=== PATIENT | male | born 1960 | race Caucasian/White ===

== ENCOUNTER 2018-02-17 11:18 | Emergency (ER) | payer MEDICAID ==
[2018-02-17] MEDS ORDERED: KETOROLAC 30 MG/ML VIAL IM STA (12:12)
[2018-02-17] MEDS ORDERED: DEXAMETHASONE 10 MG/ML VIAL PO STA (12:12)
--- NOTE | 2018-02-17 12:21 | ED Physician Documentation ---
History of Present Illness - Stated complaint Stated Complaint: R HIP PX - Chief complaint Chief Complaint: Ext Problem - History obtained from History obtained from: Patient - History of Present Illness Timing: How many weeks ago (several) Pain level max: 7 Pain level now: 5 - Additonal information Additional information: Patient is a 57-year-old male who states he has had hip pain since sleeping on a thin mattress a few weeks ago. States it is worse with walking and and better with remaining still. Has not taken anything for the pain. The pain is in the right hip. No numbness or tingling. No redness. No fevers. Denies any IV drug use. Review of Systems Constitutional: denies: Fever, Chills Respiratory: denies: Cough GI: denies: Abdominal Pain, Nausea, Vomiting, Diarrhea : denies: Dysuria, Incontinent Skin: denies: Rash Musculoskeletal: denies: Neck pain, Back pain Neurologic: denies: Headache PD PAST MEDICAL HISTORY - Past Medical History Past Medical History: No - Past Surgical History Past Surgical History: No - Present Medications Home Medications: Ambulatory Orders Medication Instructions Recorded Confirmed Meloxicam [Mobic] 15 mg PO DAILY PRN #20 tablet 02/17/18 - Allergies Allergies/Adverse Reactions: Allergies Allergy/AdvReac Type Severity Reaction Status Date / Time Penicillins Allergy Respiratory Verified 02/17/18 11:23 - Social History Does the pt smoke?: Yes Smoking Status: Current every day smoker Does the pt drink ETOH?: No Does the pt have substance abuse?: No - Immunizations Immunizations are current?: No Immunizations: TDAP >10years/unknown PD ED PE NORMAL - Vitals Vital signs reviewed: Yes - General General: Alert and oriented X 3, No acute distress - HEENT HEENT: Moist mucous membranes - Neck Neck: Supple, no meningeal sign - Cardiac Cardiac: RRR - Respiratory Respiratory: No respiratory distress, Clear bilaterally - Abdomen Abdomen: Soft, Non tender, Non distended - Derm Derm: Warm and dry - Extremities Extremities: No deformity, Other (R hip - Mild tenderness to palpation about the posterior aspect of the right hip. No swelling. No erythema. Does have pain with internal and external rotation. Full range of motion present, but does have some pain. Neurovascularly intact. No bony tenderness) - Neuro Neuro: Alert and oriented X 3 - Psych Psych: Normal mood, Normal affect Results - Vitals Vitals: Vital Signs - 24 hr 02/17/18 11:21 Temperature 36.5 C Heart Rate 68 Respiratory 14 Rate Blood Pressure 117/72 O2 Saturation 99 Oxygen O2 Source Room air PD MEDICAL DECISION MAKING - ED course Complexity details: considered differential, d/w patient ED course: Patient is a 57-year-old male with what appears to be a bursitis of the right hip. Will trial on steroids and nonsteroidal anti-inflammatories and have him follow-up with his doctor for further care. Patient will also utilize a cane to help him walk. Will return if he worsens. No evidence of fracture or dislocation. Patient counseled regarding signs and symptoms for which I believe and urgent re-evaluation would be necessary. Patient with good understanding of and agreement to plan and is comfortable going home at this time This document was made in part using voice recognition software. While efforts are made to proofread this document, sound alike and grammatical errors may occur. - Sepsis Event Vital Signs: Vital Signs - 24 hr 02/17/18 11:21 Temperature 36.5 C Heart Rate 68 Respiratory 14 Rate Blood Pressure 117/72 O2 Saturation 99 Oxygen O2 Source Room air Departure - Departure Disposition: 01 Home, Self Care Clinical Impression: Bursitis Qualifiers: Bursitis location: hip Hip bursitis location: unspecified Laterality: right Qualified Code(s): M70.71 - Other bursitis of hip, right hip Condition: Good Instructions: ED Bursitis Follow-Up: your,doctor in 1 week [Other] Prescriptions: Meloxicam [Mobic] 15 mg PO DAILY PRN #20 tablet PRN Reason: pain Comments: Take the meloxicam as prescribed. Return if you worsen. Use the cane to help you walk. This should improve over the next week or so. Forms: Activity restrictions
[2018-02-17 12:53] VITALS: BP 123/71
== END 2018-02-17 12:52 | disposition home or self-care (01) ==
LOC: ED 11:18
DX: M70.71 Other bursitis of hip, right hip (principal); F17.200 Nicotine dependence, unspecified, uncomplicated
CPT/HCPCS: 96372; 99283

== ENCOUNTER 2018-02-20 09:54 | Emergency (ER) | payer MEDICAID ==
--- NOTE | 2018-02-20 10:50 | ED Physician Documentation ---
History of Present Illness - Stated complaint Stated Complaint: LT WRIST INJURY - Chief complaint Chief Complaint: Ext Problem - Additonal information Additional information: hx from pt slipped on wet grass last night and fell on side L injuring hand and wrist no other injury Review of Systems Musculoskeletal: reports: Extremity pain PD PAST MEDICAL HISTORY - Past Medical History Past Medical History: Yes Other Past Medical History: Bursitis - Past Surgical History Past Surgical History: No - Present Medications Home Medications: Ambulatory Orders Medication Instructions Recorded Confirmed Meloxicam [Mobic] 15 mg PO DAILY PRN #20 tablet 02/17/18 - Allergies Allergies/Adverse Reactions: Allergies Allergy/AdvReac Type Severity Reaction Status Date / Time Penicillins Allergy Respiratory Verified 02/17/18 11:23 - Social History Does the pt smoke?: Yes Smoking Status: Current every day smoker Does the pt drink ETOH?: Yes Does the pt have substance abuse?: Yes Substance Use and Type: Marijuana - Immunizations Immunizations are current?: Yes Immunizations: TDAP current <10years PD ED PE NORMAL - Vitals Vital signs reviewed: Yes - HEENT HEENT: Atraumatic - Extremities Extremities: Other (TTP ulnar and radial wrist including scaphoid and to prox MT 2-4, small STS no lac no gross deformity, MSV intact) Results - Vitals Vitals: Vital Signs - 24 hr 02/20/18 02/20/18 02/20/18 10:11 11:57 13:19 Temperature 36.8 C 36.4 C L Heart Rate 72 65 68 Respiratory 18 18 18 Rate Blood Pressure 131/81 H 128/84 H 124/73 O2 Saturation 100 100 98 Oxygen O2 Source Room air - Rads (name of study) wrist hand Radiology: See rad report (triquetral fx) PD MEDICAL DECISION MAKING - ED course ED course: pt states he does not fall often but uses a cane and has lost his - Sepsis Event Vital Signs: Vital Signs - 24 hr 02/20/18 02/20/18 02/20/18 10:11 11:57 13:19 Temperature 36.8 C 36.4 C L Heart Rate 72 65 68 Respiratory 18 18 18 Rate Blood Pressure 131/81 H 128/84 H 124/73 O2 Saturation 100 100 98 Oxygen O2 Source Room air Departure - Departure Disposition: 01 Home, Self Care Clinical Impression: Triquetral fracture Qualifiers: Encounter type: initial encounter Fracture type: closed Fracture alignment: nondisplaced Laterality: left Qualified Code(s): S62.115A - Nondisplaced fracture of triquetrum [cuneiform] bone, left wrist, initial encounter for closed fracture Condition: Good Instructions: ED Fx Wrist General, ED Splint Care Velcro Follow-Up: [facility] [Provider Group] Comments: You have a small fracture of one of the wrist bones and you are very tender over another done called the scaphoid You need to wear the splint at all times - do not take it off. Motrin and tylenol for the pain Ice and elevation as for the swelling Call orthopedics for follow up this week for casting and I also recommend you get repeat xrays of your scaphoid bone in 2 weeks
[2018-02-20] MEDS ORDERED: ACETAMINOPHEN 325 MG TABLET PO STA (12:06)
--- NOTE | 2018-02-20 12:52 | XRAY Report ---
Procedure Date: 02/20/2018 Accession Number: [id number] / [id number] Procedure: XR - Wrist 4 View LT CPT Code: FULL RESULT: EXAM: LEFT WRIST RADIOGRAPHY EXAM DATE: 02/20/2018 11:04 AM. CLINICAL HISTORY: FOOSH. COMPARISON: None. TECHNIQUE: 3 views. FINDINGS: Bones: Small bony density seen posterior to the carpal row. Joints: Normal. No subluxations. Soft Tissues: Soft tissue swelling along the dorsal aspect of the wrist. IMPRESSION: Possible triquetral fracture with adjacent soft tissue swelling. RADIA
--- NOTE | 2018-02-20 12:53 | XRAY Report ---
Procedure Date: 02/20/2018 Accession Number: [id number] / [id number] Procedure: XR - Hand 3 View LT CPT Code: FULL RESULT: EXAM: LEFT HAND RADIOGRAPHY EXAM DATE: 02/20/2018 11:40 AM. CLINICAL HISTORY: Fall onto hand with pain COMPARISON: None. TECHNIQUE: 3 views. FINDINGS: Bones: Tiny bony density posterior to the carpal row. Joints: Normal. No subluxations. Soft Tissues: Soft tissue swelling along the dorsal aspect of the wrist. IMPRESSION: Triquetral fracture with adjacent soft tissue swelling. RADIA
[2018-02-20 13:19] VITALS: BP 124/73
== END 2018-02-20 13:30 | disposition home or self-care (01) ==
LOC: ED 09:54
DX: S62.115A Nondisplaced fracture of triquetrum [cuneiform] bone, left wrist, initial encounter for closed fracture (principal); F17.200 Nicotine dependence, unspecified, uncomplicated; Z79.1 Long term (current) use of non-steroidal anti-inflammatories (NSAID); W01.10XA Fall on same level from slipping, tripping and stumbling with subsequent striking against unspecified object, initial encounter; Y93.01 Activity, walking, marching and hiking
CPT/HCPCS: 73110; 73130; 99283; A9270

== ENCOUNTER 2018-03-03 15:30 | Emergency (ER) | payer MEDICAID ==
[2018-03-03 15:35] VITALS: BP 143/83
--- NOTE | 2018-03-03 15:45 | ED Physician Documentation ---
History of Present Illness - Stated complaint Stated Complaint: MED REFILL - Chief complaint Chief Complaint: General - History obtained from History obtained from: Patient - History of Present Illness Timing: Other (He been taking meloxicam for her case of right trochanteric bursitis which was helping but it was stolen and he requests a refill.) Review of Systems Constitutional: denies: Fever, Chills Cardiac: denies: Chest pain / pressure, Palpitations Respiratory: denies: Dyspnea, Cough PD PAST MEDICAL HISTORY - Past Surgical History Past Surgical History: No - Present Medications Home Medications: Ambulatory Orders Medication Instructions Recorded Confirmed Meloxicam [Mobic] 15 mg PO DAILY PRN #20 tablet 02/17/18 Meloxicam [Mobic] 7.5 mg PO BIDWM PRN #30 tablet 03/03/18 - Allergies Allergies/Adverse Reactions: Allergies Allergy/AdvReac Type Severity Reaction Status Date / Time Penicillins Allergy Respiratory Verified 03/03/18 15:35 - Social History Does the pt smoke?: Yes Smoking Status: Current every day smoker Does the pt drink ETOH?: Yes Does the pt have substance abuse?: Yes - Immunizations Immunizations are current?: Yes Immunizations: TDAP current <10years PD ED PE NORMAL - Vitals Vital signs reviewed: Yes - General General: Alert and oriented X 3, No acute distress - Back Back: No spinal TTP - Extremities Extremities: Other (He is tender over the right trochanteric bursa, he has painless internal and external rotation of the right hip.) - Neuro Neuro: Alert and oriented X 3, Normal speech Results - Vitals Vitals: Vital Signs - 24 hr 03/03/18 15:33 Temperature 36.3 C L Heart Rate 70 Respiratory 16 Rate Blood Pressure 143/83 H O2 Saturation 98 Oxygen O2 Source Room air PD MEDICAL DECISION MAKING - Sepsis Event Vital Signs: Vital Signs - 24 hr 03/03/18 15:33 Temperature 36.3 C L Heart Rate 70 Respiratory 16 Rate Blood Pressure 143/83 H O2 Saturation 98 Oxygen O2 Source Room air Departure - Departure Disposition: 01 Home, Self Care Clinical Impression: Bursitis Qualifiers: Bursitis location: hip Hip bursitis location: trochanteric bursitis Laterality : right Qualified Code(s): M70.61 - Trochanteric bursitis, right hip Condition: Good Record reviewed to determine appropriate education?: Yes Instructions: ED Bursitis Prescriptions: Meloxicam [Mobic] 7.5 mg PO BIDWM PRN #30 tablet PRN Reason: Pain Comments: Call your doctor to arrange a follow-up appointment, make the next available appointment. In the interim, return anytime if worse or if new symptoms develop. Your blood pressure was elevated today on check into the emergency department. This does not mean that you have hypertension, it is a common phenomenon to come to the emergency department and have elevated blood pressure. I recommend that you see your primary care physician within the week to have it rechecked when you are feeling better. Forms: Activity restrictions
== END 2018-03-03 16:06 | disposition home or self-care (01) ==
LOC: ED 15:30
DX: Z76.0 Encounter for issue of repeat prescription (principal); M70.61 Trochanteric bursitis, right hip; R03.0 Elevated blood-pressure reading, without diagnosis of hypertension
CPT/HCPCS: 99281; 99283

== ENCOUNTER 2018-04-15 12:21 | Emergency (ER) | payer MEDICAID ==
--- NOTE | 2018-04-15 14:07 | XRAY Report ---
Reason: hip pain Procedure Date: 04/15/2018 Accession Number: [id number] / [id number] Procedure: XR - Hip w/Pelvis 2-3V RT CPT Code: FULL RESULT: EXAM: RIGHT HIP AND PELVIS RADIOGRAPHY EXAM DATE: 04/15/2018 02:00 PM. HISTORY: COMPARISONS: None. TECHNIQUE: 1 view of the pelvis and 1 view of the hip. FINDINGS: Bones: Normal. No fracture or bone lesion. Joints: The bilateral hip, pubis symphysis, and sacroiliac joints are preserved. Soft Tissues: Normal. No soft tissue swelling. IMPRESSION: Normal pelvis and right hip radiography. RADIA
--- NOTE | 2018-04-15 14:46 | ED Physician Documentation ---
History of Present Illness - Stated complaint Stated Complaint: RT HIP PX - Chief complaint Chief Complaint: Ext Problem - Additonal information Additional information: 57-year-old male presents the emergency department with ongoing hip pain, The patient has a history of bursitis. The patient reports increased pain with walking. The patient denies any new trauma, fevers, redness or swelling of the joint. No other area of injury.Symptoms are described as moderate. No other associated symptoms. Review of Systems Constitutional: denies: Fever Eyes: denies: Decreased vision Ears: denies: Ear pain Cardiac: denies: Chest pain / pressure Respiratory: denies: Dyspnea Skin: denies: Rash Musculoskeletal: reports: Extremity pain, Joint pain. denies: Extremity swelling, Joint swelling Neurologic: denies: Generalized weakness, Numbness Immunocompromised: denies: Chemotherapy PD PAST MEDICAL HISTORY - Past Surgical History Past Surgical History: No - Present Medications Home Medications: Ambulatory Orders Medication Instructions Recorded Confirmed Meloxicam [Mobic] 15 mg PO DAILY PRN #20 tablet 02/17/18 Meloxicam [Mobic] 7.5 mg PO BIDWM PRN #30 tablet 03/03/18 - Allergies Allergies/Adverse Reactions: Allergies Allergy/AdvReac Type Severity Reaction Status Date / Time Penicillins Allergy Respiratory Verified 04/15/18 12:26 - Social History Does the pt smoke?: Yes Smoking Status: Current every day smoker Does the pt drink ETOH?: Yes Does the pt have substance abuse?: Yes - Immunizations Immunizations are current?: Yes Immunizations: TDAP current <10years - POLST Patient has POLST: No PD ED PE NORMAL - General General: Alert and oriented X 3, No acute distress - HEENT HEENT: Atraumatic, PERRL, EOMI, Ears normal - Derm Derm: Normal color, Warm and dry - Extremities Extremities: No deformity, Normal ROM s pain, No edema, No calf tenderness / cord. No: No tenderness to palpate (The patient is tender to palpation in the right hip, there is no edema, no swelling, no erythematous changes or signs of acute infection. The patient has normal range of motion and is able to ambulate without difficulty.) - Neuro Neuro: Alert and oriented X 3 - Psych Psych: Normal affect Results - Vitals Vitals: Vital Signs - 24 hr 04/15/18 12:24 Temperature 36.4 C L Heart Rate 83 Respiratory 18 Rate Blood Pressure 123/74 O2 Saturation 96 Oxygen O2 Source Room air - Rads (name of study) Hip x-ray Radiology: Final report received (IMPRESSION: Normal pelvis and right hip radiography.) PD MEDICAL DECISION MAKING - ED course ED course: The patient has ongoing chronic hip pain, I recommended that he follow-up with primary care for referral to pain management. The patient understands and agrees. Currently there is no further issue that would necessitate further workup in the emergency department. Patient appears appropriate for discharge. I discussed warning signs and recommended returning to the emergency department immediately for worsening or any concerns. - Sepsis Event Vital Signs: Vital Signs - 24 hr 04/15/18 12:24 Temperature 36.4 C L Heart Rate 83 Respiratory 18 Rate Blood Pressure 123/74 O2 Saturation 96 Oxygen O2 Source Room air Departure - Departure Disposition: 01 Home, Self Care Clinical Impression: Hip pain, chronic Qualifiers: Laterality: unspecified laterality Qualified Code(s): M25.559 - Pain in unspecified hip; G89.29 - Other chronic pain; G89.29 - Other chronic pain Condition: Good Instructions: Exercise Lower Body Hip Flexor Follow-Up: [facility] [Provider Group] Comments: Please follow-up with primary care for ongoing management of your chronic hip pain. Please return to the emergency department for worsening symptoms or new concerns Forms: Activity restrictions
[2018-04-15 14:57] VITALS: BP 113/74
== END 2018-04-15 14:56 | disposition home or self-care (01) ==
LOC: ED 12:21
DX: G89.29 Other chronic pain (principal); M25.551 Pain in right hip; F17.200 Nicotine dependence, unspecified, uncomplicated
CPT/HCPCS: 99282; 99283

== ENCOUNTER 2019-05-29 18:40 | Outpatient (CLI) | payer MEDICAID | END 2019-05-29 18:41 | disposition critical access hospital (66) | LOC: EMS 18:40 | PROVIDERS: ATTEND Surgery | DX: R55 Syncope and collapse (principal); R42 Dizziness and giddiness | CPT/HCPCS: A0425; A0427; A0999 ==

== ENCOUNTER 2019-05-29 18:58 | Observation (INO) | payer MEDICAID ==
--- NOTE | 2019-05-29 19:33 | ED Physician Documentation ---
PD HPI SYNCOPE - Stated complaint Stated Complaint: SYNCOPE - Chief complaint Chief Complaint: Neuro - History obtained from History obtained from: Patient - History of Present Illness Witnessed: Witnessed Timing - onset: Today Duration: Unknown Preceding symptoms: None Associated symptoms: Headache (Minimal), Palpitations, Diaphoresis. No: Seizure, Incontinant of urine, Incontinant of stool, Vision changes, Chest pain, Nausea / vomiting, Abdominal pain Injury occurred: Fell, Head injury. No: Bit tongue Pain level now: 0 Similar symptoms before: Has not had sx before Recently seen: Not recently seen - Additional information Additional information: This is a 58-year-old man who was checking into the [employer] where he is been for several months when he blacked out. He says he was sitting in a chair getting ready to call his daughter and he blacked out and fell to the ground. When he came to his heart was racing and he was sweating he says he was out for 10 minutes was witnessed by 1 of the workers there at the jail who called 911. He is complaining of pain in his lower back that is chronic from "slipped disks". He denies any prior history of syncopal episodes. He does not remember any preceding symptoms. Did not have a seizure and he was is not incontinent of stool or urine. Feels little shaky right now has a slight headache. Denies history of heart disease or asthma. He says he occasionally drinks alcohol maybe 3 drinks a week but today he happened to have 3 drinks. He denies shortness of breath. He has not urinated. Is had a mild sore throat but no fever. Review of Systems Constitutional: denies: Fever Throat: reports: Sore throat Cardiac: reports: Palpitations Respiratory: denies: Dyspnea, Cough GI: denies: Abdominal Pain, Nausea, Vomiting : denies: Dysuria Musculoskeletal: reports: Back pain (Chronic) Neurologic: reports: Syncope, Head injury, LOC. denies: Generalized weakness, Focal weakness, Confused, Altered mental status PD PAST MEDICAL HISTORY - Past Surgical History Past Surgical History: No - Present Medications Home Medications: Ambulatory Orders Medication Instructions Recorded Confirmed Meloxicam [Mobic] 15 mg PO DAILY PRN #20 tablet 02/17/18 Meloxicam [Mobic] 7.5 mg PO BIDWM PRN #30 tablet 03/03/18 - Allergies Allergies/Adverse Reactions: Allergies Allergy/AdvReac Type Severity Reaction Status Date / Time Penicillins Allergy Respiratory Verified 05/29/19 19:04 - Social History Does the pt smoke?: Yes Smoking Status: Current every day smoker Does the pt drink ETOH?: Yes Does the pt have substance abuse?: Yes - Immunizations Immunizations are current?: Yes Immunizations: TDAP current <10years - POLST Patient has POLST: No PD ED PE NORMAL - Vitals Vital signs reviewed: Yes - General General: Alert and oriented X 3, No acute distress, Well developed/nourished, Other (Smells of alcohol) - HEENT HEENT: Atraumatic, PERRL, EOMI - Neck Neck: No bony TTP, No adenopathy, Thyroid normal - Cardiac Cardiac: RRR, No murmur, No rub, Strong equal pulses - Respiratory Respiratory: No respiratory distress, Clear bilaterally - Abdomen Abdomen: Normal bowel sounds, Soft, Non tender, Non distended, No organomegaly - Derm Derm: Normal color, Warm and dry, No rash - Extremities Extremities: No deformity, No tenderness to palpate, Normal ROM s pain, No edema, No calf tenderness / cord - Neuro Neuro: Alert and oriented X 3, Normal speech, Other (He has some difficulty following commands and has weakness trying to lift his legs off the bed or holding his arms against resistance.) - Psych Psych: Normal mood, Normal affect Results - Vitals Vitals: Vital Signs - 24 hr 05/29/19 05/29/19 05/29/19 19:00 21:03 23:05 Temperature 36.8 C Heart Rate 63 74 91 Respiratory 16 21 18 Rate Blood Pressure 118/76 115/72 173/89 H O2 Saturation 100 98 97 Oxygen O2 Source Room air - EKG (time done) 1908 Rate: Rate (enter#) (64) Rhythm: NSR Intervals: Other (Narrow QRS) Ischemia: Hyperacute T waves (V2-V5) 2301 Rate: Rate (enter#) (69) Rhythm: NSR Intervals: Normal MT Ischemia: ST elevation c/w repol, Hyperacute T waves. No: T wave inversion Compare to prior EKG: Unchanged from prior EKG - Labs Labs: Laboratory Tests 05/29/19 05/29/19 05/29/19 19:41 19:41 19:41 WBC 7.7 RBC 3.93 L Hgb 13.2 L Hct 37.6 L MCV 95.7 H MCH 33.6 H MCHC 35.1 RDW 11.5 L Plt Count 260 MPV 8.4 Neut # (Auto) 5.6 Lymph # (Auto) 1.3 L Gaston # (Auto) 0.5 Eos # (Auto) 0.2 Baso # (Auto) 0.0 Absolute Nucleated RBC 0.00 Nucleated RBC % 0.0 Sodium 132 L Potassium 3.7 Chloride 94 L Carbon Dioxide 27 Anion Gap 11.0 BUN 13 Creatinine 0.7 Estimated GFR (MDRD) 116 Glucose 87 Calcium 8.7 Phosphorus 3.3 Magnesium 2.0 Total Bilirubin 0.6 AST 22 ALT 18 Alkaline Phosphatase 75 Troponin I High Sens 2.7 Total Protein 6.8 Albumin 4.1 Globulin 2.7 Albumin/Globulin Ratio 1.5 Lipase 21 L Urine Color Urine Clarity Urine pH Ur Specific Clare Urine Protein Urine Glucose (UA) Urine Ketones Urine Occult Blood Urine Nitrite Urine Bilirubin Urine Urobilinogen Ur Leukocyte Esterase Ur Microscopic Review Urine Culture Comments Ethyl Alcohol 30.8 05/29/19 05/29/19 21:35 21:49 WBC RBC Hgb Hct MCV MCH MCHC RDW Plt Count MPV Neut # (Auto) Lymph # (Auto) Gaston # (Auto) Eos # (Auto) Baso # (Auto) Absolute Nucleated RBC Nucleated RBC % Sodium Potassium Chloride Carbon Dioxide Anion Gap BUN Creatinine Estimated GFR (MDRD) Glucose Calcium Phosphorus Magnesium Total Bilirubin AST ALT Alkaline Phosphatase Troponin I High Sens 3.3 Total Protein Albumin Globulin Albumin/Globulin Ratio Lipase Urine Color YELLOW Urine Clarity CLEAR Urine pH 6.0 Ur Specific Clare 1.020 Urine Protein NEGATIVE Urine Glucose (UA) NEGATIVE Urine Ketones TRACE Urine Occult Blood NEGATIVE Urine Nitrite NEGATIVE Urine Bilirubin NEGATIVE Urine Urobilinogen 0.2 (NORMAL) Ur Leukocyte Esterase NEGATIVE Ur Microscopic Review NOT INDICATED Urine Culture Comments NOT INDICATED Ethyl Alcohol - Rads (name of study) head ct Radiology: EMP read contemporaneously, See rad report (neg acute) PD MEDICAL DECISION MAKING - ED course Complexity details: reviewed results, re-evaluated patient, d/w patient, d/w family ED course: EKG did show some hyperacute T waves the 3 4 and 5. His initial troponin was normal. Laboratory studies are essentially normal his alcohol level was 30. Patient became more lucent while he was here in the emergency department and re member more details about what it happened. He was sitting in the chair when he had the couple episode. He is now able to hold his legs up off the bed and straighten his arms and just seems more appropriate. I have a repeat troponin pending but will discuss with the hospitalist regarding observation for syncopal episode. Repeat EKG is unchanged and repeat troponin is normal. I discussed with Dr. Danielson the hospitalist and he is agreed to accept patient for an observation for syncope. Patient is agreeable to admission. Departure - Departure Disposition: ED Place in Observation Clinical Impression: Syncope Qualifiers: Syncope type: unspecified Qualified Code(s): R55 - Syncope and collapse Condition: Good
[2019-05-29] MEDS ORDERED: SODIUM CHLORIDE 0.9% 1,000 ML IV ONE (19:35)
[2019-05-29 19:46] LABS: BASOPHILS % (AUTO) 0.3 %; EOSINOPHILS # (AUTO) 0.2 10^3/uL (0.0-0.7); EOSINOPHILS % (AUTO) 2.6 %; HGB - HEMOGLOBIN 13.2 g/dL (14.0-18.0); LYMPHOCYTES # (AUTO) 1.3 10^3/uL (1.5-3.5); LYMPHOCYTES % (AUTO) 17.3 %; MEAN CORPUSCULAR HEMOGLOBIN 33.6 pg (27.0-31.0); MEAN CORPUSCULAR HGB CONC 35.1 g/dL (32.0-36.0); MEAN CORPUSCULAR VOLUME 95.7 fL (80.0-94.0); MEAN PLATELET VOLUME 8.4 fL (7.4-11.4); MONOCYTES # (AUTO) 0.5 10^3/uL (0.0-1.0); MONOCYTES % (AUTO) 6.8 %; NEUTROPHILS # (AUTO) 5.6 10^3/uL (1.5-6.6); NEUTROPHILS % (AUTO) 72.6 %; PLT - PLATELET COUNT 260 10^3/uL (130-450); RED BLOOD COUNT 3.93 10^6/uL (4.70-6.10); RED CELL DISTRIBUTION WIDTH 11.5 % (12.0-15.0); WHITE BLOOD COUNT 7.7 x10^3/uL (4.8-10.8)
[2019-05-29 20:00] LABS: ALBUMIN 4.1 g/dL (3.2-5.5); ALBUMIN/GLOBULIN RATIO 1.5 (1.0-2.2); BILIRUBIN,TOTAL 0.6 mg/dL (0.2-1.0); CALCIUM 8.7 mg/dL (8.5-10.3); CREATININE 0.7 mg/dL (0.6-1.2); PHOSPHORUS 3.3 mg/dL (2.5-4.6); TOTAL PROTEIN 6.8 g/dL (6.7-8.2)
--- NOTE | 2019-05-29 20:25 | CT Report ---
Reason: syncope and hit head Procedure Date: 05/29/2019 Accession Number: [id number] / [id number] Procedure: CT - HEAD WO CPT Code: FULL RESULT: EXAM: CT HEAD EXAM DATE: 05/29/2019 07:46 PM. CLINICAL HISTORY: Syncope and collapse. COMPARISON: None. TECHNIQUE: Multiaxial CT images were obtained from the foramen magnum to the vertex. Reformats: Sagittal and coronal. IV contrast: None. In accordance with CT protocol optimization, one or more of the following dose reduction techniques were utilized for this exam: automated exposure control, adjustment of mA and/or KV based on patient size, or use of iterative reconstructive technique. FINDINGS: Parenchyma: No intraparenchymal hemorrhage. No evidence of mass, midline shift, or CT findings of infarction. Gutierrez-white differentiation is distinct. Extraaxial Spaces: Normal for age. No subdural or epidural collections identified. Ventricles: Normal in size and position. Sinuses and Orbits: Imaged paranasal sinuses, orbits, and mastoids show no significant abnormality. Bones: No evidence of fracture or calvarial defect. Other: None. IMPRESSION: Normal head CT. RADIA
[2019-05-29 21:56] LABS: BILIRUBIN,URINE NEGATIVE (NEGATIVE); GLUCOSE, URINE (UA) NEGATIVE (NEGATIVE); KETONES,URINE (UA) TRACE mg/dL (NEGATIVE); LEUKOCYTE ESTERASE, URINE NEGATIVE (NEGATIVE); NITRITE,URINE NEGATIVE (NEGATIVE); OCCULT BLOOD,URINE NEGATIVE (NEGATIVE); PROTEIN,URINE NEGATIVE (NEGATIVE); UROBILINOGEN,URINE 0.2 (NORMAL) E.U./dL (NORMAL)
[2019-05-29 21:58] LABS: CLARITY,URINE CLEAR (CLEAR)
[2019-05-29] MEDS ORDERED: IBUPROFEN 400 MG TABLET PO PRN (23:26)
[2019-05-29] MEDS ORDERED: ZOLPIDEM 5 MG TABLET PO PRN (23:26)
[2019-05-29] MEDS ORDERED: PROCHLORPERAZINE 10 MG/2 ML VIAL IVP PRN (23:26)
[2019-05-29] MEDS ORDERED: SODIUM CHLORIDE FLUSH 0.9% 10 ML SYRINGE IVP PRN (23:26)
[2019-05-29] MEDS ORDERED: ACETAMINOPHEN 325 MG TABLET PO PRN (23:26)
[2019-05-29] MEDS ORDERED: ONDANSETRON 4 MG/2 ML VIAL IVP PRN (23:26)
--- NOTE | 2019-05-29 23:33 | HISTORY & PHYSICAL EXAMINATION ---
Chief Complaint - Chief Complaint Chief Complaint: Syncope History of Present Illness - Admitted From Admitted From:: Emergency Department - History Obtained From Records Reviewed: Yes History obtained from: Patient and medical records Exam Limitations: None History - Past Medical History Cardiovascular: reports: None Respiratory: reports: None Neuro: reports: None Endocrine/Autoimmune: reports: None GI: reports: None : reports: None HEENT: reports: None Psych: reports: None Musculoskeletal: reports: None Derm: reports: None MRSA Hx?: No - POLST Patient has POLST: No Meds/Allgy - Home Medications Home Medications: Ambulatory Orders Medication Instructions Recorded Confirmed Meloxicam [Mobic] 15 mg PO DAILY PRN #20 tablet 02/17/18 Meloxicam [Mobic] 7.5 mg PO BIDWM PRN #30 tablet 03/03/18 - Allergies Allergies/Adverse Reactions: Allergies Allergy/AdvReac Type Severity Reaction Status Date / Time Penicillins Allergy Respiratory Verified 05/29/19 19:04 Review of Systems - Other Findings Other Findings: A comprehensive review of systems was performed the pertinent positives and negatives are stated above in the HPI and the remainder of the review of systems is negative. Exam - Vital Signs Reviewed Vital Signs: Yes Vital Signs: Vital Signs x48h Temp Pulse Resp BP Pulse Ox 05/29/19 23:05 91 18 173/89 H 97 05/29/19 21:03 74 21 115/72 98 05/29/19 19:00 36.8 C 63 16 118/76 100 - Physical Exam General Appearance: positive: No acute distress, Alert Eyes Bilateral: positive: Normal inspection, PERRL ENT: positive: ENT inspection nml, Pharynx nml, No signs of dehydration Neck: positive: Nml inspection, Thyroid nml, No JVD, Trachea midline Respiratory: positive: Chest non-tender, No respiratory distress, Breath sounds nml Cardiovascular: positive: Regular rate & rhythm, No murmur, No gallop Peripheral Pulses: positive: 2+ Abdomen: positive: Non-tender, No organomegaly, Nml bowel sounds, No distention Back: positive: Nml inspection Skin: positive: Color nml, No rash, Warm, Dry Extremities: positive: Non-tender, Full ROM, Nml appearance Neurologic/Psychiatric: positive: Oriented x3, Mood/affect nml Conclusion/Plan - Problem List (3) Syncope Qualifiers: Syncope type: unspecified Qualified Code(s): R55 - Syncope and collapse - Lab Results Lab results reviewed: Yes Fish Bones: 05/29/19 19:41 05/29/19 19:41 Other Lab Results: Lab Results x24hrs 05/29/19 05/29/19 05/29/19 21:49 21:35 19:41 WBC RBC Hgb Hct MCV MCH MCHC RDW Plt Count MPV Neut # (Auto) Lymph # (Auto) [place] # (Auto) Eos # (Auto) Baso # (Auto) Absolute Nucleated RBC Nucleated RBC % Sodium Potassium Chloride Carbon Dioxide Anion Gap BUN Creatinine Estimated GFR (MDRD) Glucose Calcium Phosphorus Magnesium Total Bilirubin AST ALT Alkaline Phosphatase Troponin I High Sens 3.3 pg/mL pg/mL 2.7 pg/mL pg/mL (2.3-19.7) (2.3-19.7) Total Protein Albumin Globulin Albumin/Globulin Ratio Lipase Urine Color YELLOW Urine Clarity CLEAR (CLEAR) Urine pH 6.0 PH PH (5.0-7.5) Ur Specific [place] 1.020 (1.002-1.030) Urine Protein NEGATIVE mg/dL mg/dL (NEGATIVE) Urine Glucose (UA) NEGATIVE mg/dL mg/dL (NEGATIVE) Urine Ketones TRACE mg/dL mg/dL (NEGATIVE) Urine Occult Blood NEGATIVE (NEGATIVE) Urine Nitrite NEGATIVE (NEGATIVE) Urine Bilirubin NEGATIVE (NEGATIVE) Urine Urobilinogen 0.2 (NORMAL) E.U./dL E.U./dL (NORMAL) Ur Leukocyte Esterase NEGATIVE (NEGATIVE) Ur Microscopic Review NOT INDICATED Urine Culture Comments NOT INDICATED Ethyl Alcohol 05/29/19 05/29/19 19:41 19:41 WBC 7.7 x10^3/uL x10^3/uL (4.8-10.8) RBC 3.93 10^6/uL L 10^6/uL (4.70-6.10) Hgb 13.2 g/dL L g/dL (14.0-18.0) Hct 37.6 % L % (42.0-52.0) MCV 95.7 fL H fL (80.0-94.0) MCH 33.6 pg H pg (27.0-31.0) MCHC 35.1 g/dL g/dL (32.0-36.0) RDW 11.5 % L % (12.0-15.0) Plt Count 260 10^3/uL 10^3/uL (130-450) MPV 8.4 fL fL (7.4-11.4) Neut # (Auto) 5.6 10^3/uL 10^3/uL (1.5-6.6) Lymph # (Auto) 1.3 10^3/uL L 10^3/uL (1.5-3.5) [place] # (Auto) 0.5 10^3/uL 10^3/uL (0.0-1.0) Eos # (Auto) 0.2 10^3/uL 10^3/uL (0.0-0.7) Baso # (Auto) 0.0 10^3/uL 10^3/uL (0.0-0.1) Absolute Nucleated RBC 0.00 x10^3/uL x10^3/uL Nucleated RBC % 0.0 /100WBC /100WBC Sodium 132 mmol/L L mmol/L (135-145) Potassium 3.7 mmol/L mmol/L (3.5-5.0) Chloride 94 mmol/L L mmol/L (101-111) Carbon Dioxide 27 mmol/L mmol/L (21-32) Anion Gap 11.0 (6-13) BUN 13 mg/dL mg/dL (6-20) Creatinine 0.7 mg/dL mg/dL (0.6-1.2) Estimated GFR (MDRD) 116 (>89) Glucose 87 mg/dL mg/dL (70-100) Calcium 8.7 mg/dL mg/dL (8.5-10.3) Phosphorus 3.3 mg/dL mg/dL (2.5-4.6) Magnesium 2.0 mg/dL mg/dL (1.7-2.8) Total Bilirubin 0.6 mg/dL mg/dL (0.2-1.0) AST 22 IU/L IU/L (10-42) ALT 18 IU/L IU/L (10-60) Alkaline Phosphatase 75 IU/L IU/L (42-121) Troponin I High Sens Total Protein 6.8 g/dL g/dL (6.7-8.2) Albumin 4.1 g/dL g/dL (3.2-5.5) Globulin 2.7 g/dL g/dL (2.1-4.2) Albumin/Globulin Ratio 1.5 (1.0-2.2) Lipase 21 U/L L U/L (22-51) Urine Color Urine Clarity Urine pH Ur Specific [place] Urine Protein Urine Glucose (UA) Urine Ketones Urine Occult Blood Urine Nitrite Urine Bilirubin Urine Urobilinogen Ur Leukocyte Esterase Ur Microscopic Review Urine Culture Comments Ethyl Alcohol 30.8 mg/dL mg/dL - Diagnostic Imaging Results Diagnostic Imaging Results: positive: Final report reviewed
[2019-05-29] MEDS ORDERED: SODIUM CHLORIDE 0.9% 1,000 ML IV SCH (23:45)
--- NOTE | 2019-05-30 00:30 | XRAY Report ---
Reason: Syncope, fall Procedure Date: 05/29/2019 Accession Number: [id number] / [id number] Procedure: XR - Chest 1 View X-Ray CPT Code: 52563 FULL RESULT: EXAM: CHEST RADIOGRAPHY EXAM DATE: 05/29/2019 11:45 PM CLINICAL HISTORY: Syncope, fall. COMPARISON: None. TECHNIQUE: 1 view. FINDINGS: Lungs/Pleura: No significant consolidation, effusion, or definite pneumothorax. Mediastinum: Cardiac silhouette is within normal limits when accounting for lung volumes and technique. Other: Old appearing deformity of the left first rib. IMPRESSION: No acute cardiopulmonary abnormality demonstrated. RADIA
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
[2019-05-30] MEDS: SODIUM CHLORIDE FLUSH 0.9% 10 ML SYRINGE IVP SCH ×2 (01:22→08:26)
--- NOTE | 2019-05-30 02:54 | Ultrasound Report ---
Reason: Syncope Procedure Date: 05/30/2019 Accession Number: [id number] / [id number] Procedure: US - Carotid Doppler Complete CPT Code: FULL RESULT: EXAM: BILATERAL CAROTID AND VERTEBRAL ARTERY DUPLEX DOPPLER ULTRASOUND EXAM DATE: 05/30/2019 02:18 AM CLINICAL HISTORY: Syncope. COMPARISON: None. TECHNIQUE: Grayscale imaging, color Doppler, and duplex spectral Doppler were used to evaluate the carotid and vertebral arteries bilaterally. Static images were obtained. FINDINGS: Minimal calcified plaquing bilaterally. Normal antegrade flow is present in bilateral vertebral arteries. VELOCITIES (cm/sec): Right CCA mid: PSV 139 cm/sec CCA dist: PSV 112 cm/sec ICA prox: PSV 76 cm/sec, EDV 32 cm/sec ICA mid: PSV 53 cm/sec, EDV 20 cm/sec ICA dist: PSV 78 cm/sec, EDV 26 cm/sec ECA: PSV 91 cm/sec Vert: PSV 41 cm/sec ICA/CCA: 0.56 Left CCA mid: PSV 106 cm/sec CCA dist: PSV 85 cm/sec ICA prox: PSV 105 cm/sec, EDV 38 cm/sec ICA mid: PSV 63 cm/sec, EDV 24 cm/sec ICA dist: PSV 67 cm/sec, EDV 29 cm/sec ECA: PSV 103 cm/sec Vert: PSV 41 cm/sec ICA/CCA: 0.99 ICA diameter stenosis: Right: <50% by velocity and <70% by NASCET criteria. Left: <50% by velocity and <70% by NASCET criteria. IMPRESSION: 1. Minimal calcified bilateral carotid artery plaquing. 2. In the right carotid artery there are no elevated carotid artery velocities to suggest hemodynamically significant stenosis. 3. In the left carotid artery there are no elevated carotid artery velocities to suggest hemodynamically significant stenosis. 4. Normal antegrade flow is present in bilateral vertebral arteries. General Recommendations: Stenosis =50% ICA - Follow-up ultrasound 6-12 months Stenosis <50% ICA - High Risk Patient with plaque - Follow-up ultrasound 1-2 years Normal Study but High Risk Patient - Follow-up ultrasound 3-5 years Management recommendations and diagnostic criteria are based on current IAC endorsed standards in Carotid Artery Stenosis: Grayscale and Doppler Ultrasound Diagnosis. Validated velocity measurements with angiographic measurements and velocity criteria are extrapolated from diameter data as defined by the Society of Radiologists in Ultrasound Consensus Conference Radiology 2003; 229;340-346. RADIA
[2019-05-30 04:48] LABS: BASOPHILS % (AUTO) 0.4 %; EOSINOPHILS # (AUTO) 0.2 10^3/uL (0.0-0.7); EOSINOPHILS % (AUTO) 4.3 %; HGB - HEMOGLOBIN 13.2 g/dL (14.0-18.0); LYMPHOCYTES % (AUTO) 17.1 %; MEAN CORPUSCULAR HEMOGLOBIN 33.6 pg (27.0-31.0); MEAN CORPUSCULAR HGB CONC 35.1 g/dL (32.0-36.0); MEAN CORPUSCULAR VOLUME 95.7 fL (80.0-94.0); MEAN PLATELET VOLUME 8.4 fL (7.4-11.4); MONOCYTES # (AUTO) 0.6 10^3/uL (0.0-1.0); MONOCYTES % (AUTO) 9.9 %; NEUTROPHILS # (AUTO) 3.8 10^3/uL (1.5-6.6); NEUTROPHILS % (AUTO) 67.9 %; PLT - PLATELET COUNT 256 10^3/uL (130-450); RED BLOOD COUNT 3.93 10^6/uL (4.70-6.10); RED CELL DISTRIBUTION WIDTH 11.8 % (12.0-15.0); WHITE BLOOD COUNT 5.5 x10^3/uL (4.8-10.8)
[2019-05-30 05:04] LABS: ALBUMIN 3.7 g/dL (3.2-5.5); ALBUMIN/GLOBULIN RATIO 1.4 (1.0-2.2); ALKALINE PHOSPHATASE 75 IU/L (42-121); ALT ALANINE AMINOTRANSFERASE 17 IU/L (10-60); AST ASPARTATE AMINOTRANSFERASE 23 IU/L (10-42); BILIRUBIN,TOTAL 0.8 mg/dL (0.2-1.0); BUN - BLOOD UREA NITROGEN 14 mg/dL (6-20); CALCIUM 8.9 mg/dL (8.5-10.3); CARBON DIOXIDE - CO2 26 mmol/L (21-32); CHLORIDE 102 mmol/L (101-111); CHOL/HDL RATIO 2.2 (<5.0); CHOLESTEROL 147 mg/dL; CREATININE 0.6 mg/dL (0.6-1.2); GFR - MDRD 138 (>89); GLUCOSE 84 mg/dL (70-100); HDL CHOLESTEROL 66 mg/dL; LDL CHOLESTEROL,CALCULATED 64 mg/dL; SODIUM 136 mmol/L (135-145); TOTAL PROTEIN 6.3 g/dL (6.7-8.2); VLDL CHOLESTEROL 17 mg/dL
--- NOTE | 2019-05-30 08:04 | Discharge Plan ---
Discharge Plan Problem Reviewed?: Yes Disposition: Home, Self Care Condition: Stable Diet: Regular Activity Restrictions: Activity as Tolerated Shower Restrictions: No Instruction Topics: Addiction Alcohol Health Concerns: You were here after a fainting spell. The lab tests showed a low sodium level, and alcohol was present in your system, both of which may have caused the spell. Plan of Treatment: Stay better hydrated, decrease alcohol intake. Care Goals: Stabilization. Assessment: The patient understands. No Smoking: If you smoke, Please STOP! Call for help. Follow-up with: YUMIKO KWAN MD [Primary Care Provider] -
[2019-05-30] MEDS ORDERED: ENOXAPARIN 40 MG/0.4 ML SYRINGE SUBQ SCH (09:00)
[2019-05-30] MEDS ORDERED: FAMOTIDINE 20 MG TABLET PO SCH (09:00)
[2019-05-30] MEDS ORDERED: POLYETHYLENE GLYCOL 3350 17 GM PACKET PO SCH (09:00)
[2019-05-30] MEDS ORDERED: NICOTINE 14 MG PATCH TOP SCH (10:35)
[2019-05-30 11:02] VITALS: BP 125/82
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
== END 2019-05-30 12:45 | disposition home or self-care (01) ==
LOC: EDUNIT# → EDBD → ED 18:58 → MS2 23:26
PROVIDERS: ADMIT Internal Medicine; ATTEND Internal Medicine
DX: R55 Syncope and collapse (principal); S09.90XA Unspecified injury of head, initial encounter; F10.10 Alcohol abuse, uncomplicated; F17.210 Nicotine dependence, cigarettes, uncomplicated; E87.1 Hypo-osmolality and hyponatremia; M70.61 Trochanteric bursitis, right hip; Z59.0 Homelessness; E87.8 Other disorders of electrolyte and fluid balance, not elsewhere classified; W07.XXXA Fall from chair, initial encounter
CPT/HCPCS: 36415; 70450; 71045; 80053; 80061; 80320; 81003; 83690; 83735; 83880; 84100; 84484; 85025; 93005; 93306; 93880; 96360; 96361; 99284; 99285; A9270; G0378; 81001; 83721; 87086